=== PATIENT | female | born 1945 | race Caucasian/White ===

== ENCOUNTER → 2021-04-07 08:14 | Outpatient (CLI) | payer MEDICARE, SELFPAY ==
[2021-04-07 18:53] LABS: SARS-CoV-2 RNA PCR Negative
== END ==
PROVIDERS: PCP Family Medicine; Visit Provider Family Medicine
DX: Z20.822 Contact with and (suspected) exposure to COVID-19 (principal); R05 Cough
CPT/HCPCS: C9803; U0003; U0005

== ENCOUNTER 2024-09-07 10:41 | Outpatient (CLI) | payer MEDICARE, SELFPAY | END 2024-09-07 10:42 | disposition home or self-care (01) | LOC: ANHAUDIO 10:42 | PROVIDERS: PCP Family Medicine; Visit Provider Family Medicine | DX: H91.91 Unspecified hearing loss, right ear (principal) | CPT/HCPCS: 92567 ==